=== PATIENT | female | born 1940 | race Caucasian/White ===

== ENCOUNTER 2017-02-25 14:49 | Day surgery (SDC) | payer MEDICARE, OTHER ==
[~2017-02-25] VITALS: Ht 154.9 cm; Wt 51.4 kg
[~2017-02-25 14:49] MED LIST: ASPI81CH PO; LISI5 PO; Lisinopril2.5 MG; METO50ER PO; MULVITMIND PO; Naprosyn375 MG PO; Percocet 5-3251 EACH PO; SERT100 PO; Ultram50 MG PO; Zofran Odt4 MG SL
[2017-12-12] MEDS ORDERED: CHOL10002 PO (13:47)
[2017-12-14] MEDS ORDERED: PANT40 PO (16:18)
== END 2017-02-25 16:50 | disposition home or self-care (01) ==
LOC: ORSCSDS 14:49
PROVIDERS: Anesthesiology
PROC: 3E0R33Z Introduction of Anti-inflammatory into Spinal Canal, Percutaneous Approach (ICD-10-PCS; principal; 2017-02-25 15:45)
DX: M50.122 Cervical disc disorder at C5-C6 level with radiculopathy (principal); I10 Essential (primary) hypertension; F32.9 Major depressive disorder, single episode, unspecified; Z79.82 Long term (current) use of aspirin; Z79.899 Other long term (current) drug therapy
CPT/HCPCS: J1040; J2250; J3010

== ENCOUNTER 2018-10-03 07:31 | Day surgery (SDC) | payer MEDICARE, OTHER ==
[~2018-10-03] VITALS: Ht 157.5 cm; Wt 49.7 kg
[~2018-10-03 07:31] MED LIST changes: +CHOL10002 PO; +PANT40 PO
[2018-10-03] MEDS ORDERED: COLE625 PO (08:06)
--- NOTE | 2018-10-03 09:53 | NUR ---
10/03/18 0953 Madison Shi PT HAD A LARGE BRUISE WHERE IV WAS, DISCUSSED WITH PATIENT AND SPOUSE ABOUT WATCHING CLOSELY AND CALLING IF ANY PROBLEMS. BOTH PATIENT AND SPOUSE VERBALIZED UNDERSTANDING
== END 2018-10-03 09:49 | disposition home or self-care (01) ==
LOC: ORSCSDS 07:31
PROVIDERS: Internal Medicine Gastroenterology
PROC: 0DBE8ZX Excision of Large Intestine, Via Natural or Artificial Opening Endoscopic, Diagnostic (ICD-10-PCS; principal; 2018-10-03 09:00)
DX: R19.7 Diarrhea, unspecified (principal); Z86.010 Personal history of colon polyps; K57.30 Diverticulosis of large intestine without perforation or abscess without bleeding; Z87.891 Personal history of nicotine dependence; I10 Essential (primary) hypertension; Z79.82 Long term (current) use of aspirin; Z79.899 Other long term (current) drug therapy
CPT/HCPCS: 88305; J2405; J2704; J7120

== ENCOUNTER 2021-04-15 10:50 | Day surgery (SDC) | payer MEDICARE, OTHER ==
[~2021-04-15] VITALS: Ht 152.4 cm; Wt 50.4 kg
[~2021-04-15 10:50] MED LIST changes: +COLE625 PO
[2021-04-15] MEDS ORDERED: PANT40 PO (12:28)
--- NOTE | 2021-04-15 12:32 | NUR ---
04/15/21 1232 Jatinder Truong CALL LIGHT WITHIN REACH. FAMILY AT CHAIRSIDE
== END 2021-04-15 16:15 | disposition home or self-care (01) ==
LOC: ORSCSDS 10:50
PROVIDERS: Orthopaedic Surgery
PROC: 0LQ14ZZ Repair Right Shoulder Tendon, Percutaneous Endoscopic Approach (ICD-10-PCS; principal; 2021-04-15 12:25)
PROC: 0RNJ4ZZ Release Right Shoulder Joint, Percutaneous Endoscopic Approach (ICD-10-PCS; principal; 2021-04-15 12:25)
PROC: 0LS34ZZ Reposition Right Upper Arm Tendon, Percutaneous Endoscopic Approach (ICD-10-PCS; principal; 2021-04-15 12:25)
DX: S46.001A Unspecified injury of muscle(s) and tendon(s) of the rotator cuff of right shoulder, initial encounter (principal); M75.22 Bicipital tendinitis, left shoulder; M75.42 Impingement syndrome of left shoulder; I10 Essential (primary) hypertension; E78.5 Hyperlipidemia, unspecified; F32.A Depression, unspecified; I73.00 Raynaud's syndrome without gangrene; M81.0 Age-related osteoporosis without current pathological fracture; Z79.82 Long term (current) use of aspirin; Z79.899 Other long term (current) drug therapy; Z87.891 Personal history of nicotine dependence
CPT/HCPCS: C1713; J0171; J1100; J1885; J2250; J2405; J2704; J2710; J3010; J7120

== ENCOUNTER 2021-06-13 10:32 | Emergency (ER) | payer MEDICARE, OTHER ==
[~2021-06-13] VITALS: Ht 154.9 cm; Wt 51.3 kg
[2021-06-13] MEDS ORDERED: HYDR1TAB94 PO (11:34)
== END 2021-06-13 11:39 | disposition home or self-care (01) ==
LOC: ER 10:32
DX: M25.511 Pain in right shoulder (principal); I10 Essential (primary) hypertension; Z79.899 Other long term (current) drug therapy; Z88.8 Allergy status to other drugs, medicaments and biological substances; Z87.891 Personal history of nicotine dependence
CPT/HCPCS: 73030; 99283-25

== ENCOUNTER 2022-03-16 14:36 | Day surgery (SDC) | payer MEDICARE, OTHER ==
[~2022-03-16] VITALS: Ht 154.9 cm; Wt 51.4 kg
[~2022-03-16 14:36] MED LIST changes: +HYDR1TAB94 PO
--- NOTE | 2022-03-16 16:45 | NUR ---
03/16/22 7236 Clyde Gray ROPIVACAINE 0.5% 30 MLS MIXED W/ EPI 0.15 ML (1MG/ML) TO MAKE ROPIVACAINE 0.5% 1:200,000 FOR INJECTION AT OPSITE BY DR REARDON. 30 MLS INJECTED.
[2022-03-17] MEDS ORDERED: Percocet 5-3251 EACH PO (16:05)
== END 2022-03-16 17:51 | disposition home or self-care (01) ==
LOC: ORSCSDS 14:36
PROVIDERS: Podiatrist Foot & Ankle Surgery
PROC: 0SGN04Z Fusion of Left Metatarsal-Phalangeal Joint with Internal Fixation Device, Open Approach (ICD-10-PCS; principal; 2022-03-16 16:00)
DX: M20.22 Hallux rigidus, left foot (principal); M19.072 Primary osteoarthritis, left ankle and foot; M79.672 Pain in left foot; I10 Essential (primary) hypertension; Z87.891 Personal history of nicotine dependence; K21.9 Gastro-esophageal reflux disease without esophagitis; Z79.899 Other long term (current) drug therapy
CPT/HCPCS: C1713; J0171; J0690; J1100; J1885; J2405; J2704; J2795; J3010; J7120

== ENCOUNTER 2024-01-02 03:25 | Emergency (ER) | payer MEDICARE ==
[~2024-01-02] VITALS: Ht 152.4 cm; Wt 51.3 kg
[2024-01-02 04:24] LABS: BASOPHILS ABSOLUTE AUTO 0.01 K/mm3 (0.00-0.23); BASOPHILS PERCENT AUTO 0 % (0-2); EOSINOPHILS PERCENT AUTO 2 % (0-6); Hematocrit 24.2 % (33.0-51.0); Hemoglobin 8.2 g/dL (11.5-16.0); IMMATURE GRAN ABSOLUTE AUTO 0.02 K/mm3 (0.00-0.10); IMMATURE GRAN PERCENT AUTO 0 % (0-1); LYMPHOCYTES ABSOLUTE AUTO 1.14 K/mm3 (0.84-5.20); LYMPHOCYTES PERCENT AUTO 22 % (21-46); MONOCYTES ABSOLUTE AUTO 0.31 K/mm3 (0.16-1.47); MONOCYTES PERCENT AUTO 6 % (4-13); Mean Corpuscular HGB 32.4 pg (26.0-34.0); Mean Corpuscular HGB Conc 33.9 g/dL (31.5-36.5); Mean Corpuscular Volume 96 fL (80-100); Mean Platelet Volume 9.3 fL (9.1-12.4); NEUTROPHILS PERCENT AUTO 69 % (41-73); Platelet Count 155 K/mm3 (150-400); RDW Coefficient Variation 12.5 % (11.7-14.2); RDW Standard Deviation 43.6 fL (35.1-46.3); Red Blood Cell Count 2.53 M/mm3 (3.80-5.20); White Blood Cell Count 5.08 K/mm3 (4.00-11.30)
[2024-01-02 04:39] LABS: Albumin, Blood 3.5 g/dL (3.4-5.0); Albumin/Globulin Ratio 1.3 (0.8-1.8); Bilirubin, Total 0.7 mg/dL (0.1-1.0); Bun/Creatinine Ratio 31.2 (12.0-20.0); Calcium, Blood 8.7 mg/dL (8.5-10.1); Creatinine, Blood 0.58 mg/dL (0.40-1.00); Globulin, Blood 2.6 g/dL (2.2-4.0); Potassium, Blood 4.1 mmol/L (3.5-5.5); Total Protein, Blood 6.1 g/dL (6.4-8.2)
[2024-01-02] MEDS ORDERED: Morphine Sulfate 4 MG/1 ML Injection IV ONE (06:55)
[2024-01-02 07:48] LABS: Free Thyroxine 0.78 ng/dL (0.70-1.60); Thyroid Stimulating Hormone 0.958 uIU/mL (0.360-4.800)
[2024-01-02 09:38] LABS: Source, Urine Clean Catch
[2024-01-02 09:41] LABS: Appearance, Urine Clear (Clear); Bilirubin, Urine Neg (Neg); Blood, Urine 1+ (Neg); Color, Urine Yellow (P-Yellow); Glucose Qualitative, Urine Neg (Neg); Ketones, Urine Neg (Neg); Leukocyte Esterase, Urine Neg (Neg); Nitrite, Urine Neg (Neg); Protein, Urine Neg (Neg); Urobilinogen, Urine NORM (Normal)
[2024-01-02 09:42] LABS: Hematocrit 39.1 % (33.0-51.0); Hemoglobin 13.5 g/dL (11.5-16.0)
[2024-01-02 09:47] LABS: Bacteria Rare /hpf; Squamous Epithelial Cells Few /hpf (Few)
[2024-01-02 09:48] LABS: Red Blood Cells, Urine 0-2 /hpf (0-2); White Blood Cells, Urine 0-2 /hpf (0-5)
[2024-01-02 12:00] VITALS: BP 143/92
[2024-01-02 12:51] LABS: Influenza A, PCR NEGATIVE (NEGATIVE); Influenza B, PCR NEGATIVE (NEGATIVE); Resp Syncytial Virus, PCR NEGATIVE (NEGATIVE); SARS-Cov-2 (COVID-19) PCR, MMC NEGATIVE (NEGATIVE)
== END 2024-01-02 16:04 ==
LOC: ER 03:25
PROVIDERS: Emergency Medicine; Student in an Organized Health Care Education/Training Program
DX: R53.1 Weakness (principal); R25.1 Tremor, unspecified; Z87.891 Personal history of nicotine dependence; I10 Essential (primary) hypertension; Z79.899 Other long term (current) drug therapy; Z88.8 Allergy status to other drugs, medicaments and biological substances
CPT/HCPCS: 0241U; 70450; 71045; 72125; 74177; 80053; 81001; 82550; 82607; 84439; 84443; 85014; 85018; 85025; 96374-59; 97162; 99285-25; J2270; Q9967

== ENCOUNTER → 2024-09-19 | Outpatient (CLI) | payer MEDICARE | LOC: LAB SHORT 11:18 → LAB 11:18 | DX: R30.0 Dysuria (principal) | CPT/HCPCS: 87077; 87086; 87186 ==

== ENCOUNTER 2024-10-24 09:32 | Day surgery (SDC) | payer OTHER ==
[~2024-10-24] VITALS: Ht 144.8 cm; Wt 50.4 kg
[~2024-10-24 09:32] MED LIST changes: +Balanced Salt Epinephrine Irrigation Solution 500 mL IR SCH; +Moxifloxacin HCL 0.5 MG/0.1 ML 0.4MLSYR RIGHTEYE SCH; +Ondansetron 4 MG SoluTab MM PRN; +PHENYLEPHRINE\\TROPICAMIDE\\TETRACAINE OPHTHALMIC DILATING SOLN RIGHTEYE PRN; +Povidone-Iodine 450 DROP/30 ML Solution ONE; +Povidone-Iodine 450 DROP/30 ML Solution RIGHTEYE SCH; +Tetracaine HCl/Pf 0.5% Opth Soln 4 ml ONE; +diazePAM 5 MG,diazePAM 2 MG PO SCH
[2024-10-24] MEDS ORDERED: TOCO1000 PO (10:02)
[2024-10-24] MEDS ORDERED: ASCO500 PO (10:03)
--- NOTE | 2024-10-24 10:47 | NUR ---
10/24/24 1047 Helen Leung HR:53 BP:156/81 SPO2:100% ON 10L BLOW BY O2
[2024-10-24 11:06] VITALS: BP 169/70
== END 2024-10-24 11:26 | disposition home or self-care (01) ==
LOC: ORSCSDS 09:32
PROVIDERS: Student in an Organized Health Care Education/Training Program
PROC: 08RJ3JZ Replacement of Right Lens with Synthetic Substitute, Percutaneous Approach (ICD-10-PCS; principal; 2024-10-24 11:00)
DX: H25.813 Combined forms of age-related cataract, bilateral (principal); H21.81 Floppy iris syndrome; Z87.891 Personal history of nicotine dependence; Z79.899 Other long term (current) drug therapy
CPT/HCPCS: A9270; V2632

== ENCOUNTER 2024-10-31 08:30 | Day surgery (SDC) | payer OTHER ==
[~2024-10-31] VITALS: Ht 147.3 cm; Wt 51.3 kg
[~2024-10-31 08:30] MED LIST changes: +ASCO500 PO; +Moxifloxacin HCL 0.5 MG/0.1 ML 0.4MLSYR LEFTEYE SCH; -Moxifloxacin HCL 0.5 MG/0.1 ML 0.4MLSYR RIGHTEYE SCH; +PHENYLEPHRINE\\TROPICAMIDE\\TETRACAINE OPHTHALMIC DILATING SOLN LEFTEYE PRN; -PHENYLEPHRINE\\TROPICAMIDE\\TETRACAINE OPHTHALMIC DILATING SOLN RIGHTEYE PRN; +Povidone-Iodine 450 DROP/30 ML Solution LEFTEYE SCH; -Povidone-Iodine 450 DROP/30 ML Solution RIGHTEYE SCH; +TOCO1000 PO
[2024-10-31] MEDS ORDERED: DONE5 PO (09:04)
--- NOTE | 2024-10-31 09:13 | NUR ---
10/31/24 0913 Ekaterina Neal PT STATES SHE DOES NOT HAVE ANY ANXIETY ABOUT THE PROCEDURE AT THIS TIME AND RATED HER ANXIETY A 0/10. VALIUM 7MG ADMINISTERED AT 0901. PULSE OXIMETRY IN PLACE SHOWING SP02 AT 98% ON ROOM AIR. TETRACAINE IN AT 0902 PLEDGETT IN AT 0903 PT TOLERATED WELL. AT BEDSIDE. CALL LIGHT IN REACH.
--- NOTE | 2024-10-31 09:37 | NUR ---
10/31/24 0937 Helen Leung HR:54 BP:143/96 SP02:99% ON 10L BLOW BY O2
[2024-10-31 09:56] VITALS: BP 172/63
== END 2024-10-31 10:10 | disposition home or self-care (01) ==
LOC: ORSCSDS 08:30
PROVIDERS: Student in an Organized Health Care Education/Training Program
PROC: 08RK3JZ Replacement of Left Lens with Synthetic Substitute, Percutaneous Approach (ICD-10-PCS; principal; 2024-10-31 10:00)
DX: H25.812 Combined forms of age-related cataract, left eye (principal); Z96.1 Presence of intraocular lens; Z87.891 Personal history of nicotine dependence; Z79.899 Other long term (current) drug therapy
CPT/HCPCS: A9270; V2632